=== PATIENT | male | born 1970 | race Caucasian/White ===

== ENCOUNTER 2017-11-24 07:16 | Day surgery (SDC) | payer OTHER ==
[2017-11-24] MEDS ORDERED: PROPOFOL 200 MG/20 ML VIAL As Ordered (07:57)
[2017-11-24] MEDS ORDERED: LIDOCAINE 2% INJ 100 MG/5 ML SDV (FOR ANES.) As Ordered (07:57)
== END 2017-11-24 09:00 | disposition home or self-care (01) ==
LOC: M OPP 07:16
DX: Z12.11 Encounter for screening for malignant neoplasm of colon (principal); Z80.0 Family history of malignant neoplasm of digestive organs; K64.0 First degree hemorrhoids; K29.70 Gastritis, unspecified, without bleeding; K21.9 Gastro-esophageal reflux disease without esophagitis; J45.909 Unspecified asthma, uncomplicated; R06.83 Snoring
CPT/HCPCS: 45378